=== PATIENT | male | born 1930 | race Caucasian/White ===

== ENCOUNTER 2017-09-23 13:58 | Inpatient (IN) | payer MEDICARE, OTHER ==
[~2017-09-23] VITALS: Ht 170.2 cm; Wt 86.2 kg
[2017-09-23 14:03] VITALS: BP 127/79
[2017-09-23] MEDS ORDERED: PLAVIX 300 MG300 M1 PO (14:09)
[2017-09-23] MEDS ORDERED: LISINOPRIL5 MG PO (14:10)
[2017-09-23] MEDS ORDERED: NORVASC5 MG PO (14:10)
[2017-09-23] MEDS ORDERED: GLYBURIDE 2.52.5 MG PO (14:10)
[2017-09-23] MEDS ORDERED: METFORMIN HCL500 MG PO (14:10)
[2017-09-23] MEDS ORDERED: IMDUR 30 MG TAB30 M1 PO (14:10)
[2017-09-23] MEDS ORDERED: COREG6.25 MG PO (14:10)
[2017-09-23] MEDS ORDERED: FLOMAX0.4 MG PO (14:11)
[2017-09-23] MEDS ORDERED: LIPITOR10 MG PO (14:11)
[2017-09-23] MEDS ORDERED: ASPIR 8181 MG PO (14:12)
[2017-09-23] MEDS ORDERED: PROSCAR 5MG TABL5 MG PO (14:12)
[2017-09-23] MEDS ORDERED: FISH OIL 1,001000 M2 PO (14:12)
[2017-09-23 14:28] LABS: ABSOLUTE BASOPHILS 0.1 thou/uL (0.0-0.2); ABSOLUTE EOSINOPHILS 0.1 thou/uL (0.0-0.7); ABSOLUTE LYMPHOCYTES 2.3 thou/uL (0.8-5.3); ABSOLUTE MONOCYTES 0.8 thou/uL (0.0-1.2); ABSOLUTE NEUTROPHILS 7.9 thou/uL (1.6-8.1); BASOPHILS 0.7 %; EOSINOPHILS 1.2 %; HEMATOCRIT 46.1 % (42.0-52.0); HEMOGLOBIN 15.3 gm/dL (14.0-18.0); LYMPHOCYTES 20.2 %; MCHC 33.2 g/dL (28.0-37.0); MCV 90.2 fL (80.0-100.0); MONOCYTES 7.1 %; MPV 8.2 fl. (7.2-11.1); NUCLEATED RBCS 0 /100WBC; PLATELET COUNT* 314 thou/uL (150-400); POLYS 70.8 %; RBC 5.11 mil/uL (4.50-6.00); RDW-CV 14.9 % (10.5-14.5); WBC 11.1 thou/uL (4.0-11.0)
[2017-09-23 14:33] LABS: ANION GAP 9 mmol/L (7-16); BUN 20 mg/dL (7-18); CALCIUM 9.1 mg/dL (8.5-10.1); CHLORIDE 100 mmol/L (98-107); CO2 24 mmol/L (21-32); CREATININE 1.2 mg/dL (0.6-1.3); GLUCOSE 165 mg/dL (70-99); POTASSIUM 4.3 mmol/L (3.5-5.1); SODIUM 133 mmol/L (136-145)
[2017-09-23 14:39] LABS: INR 1.1; PROTIME 10.6 Seconds (9.20-11.50)
[2017-09-23 14:43] LABS: ALBUMIN 3.6 g/dL (3.4-5.0); ALKALINE PHOSPHATASE 95 U/L (46-116); LIPASE 42 U/L (73-393); MAGNESIUM 1.7 mg/dL (1.8-2.4); NT-PRO BRAIN NAT PEPTIDE 2768 pg/mL (<300); SGOT 16 U/L (15-37); SGPT 18 U/L (30-65); TOTAL BILIRUBIN 0.7 mg/dL (<0.1-1.0); TOTAL PROTEIN 7.6 g/dL (6.4-8.2); TROPONIN-I LEVEL <0.06 ng/mL (<0.06)
[2017-09-23 15:18] LABS: URINE BILIRUBIN NEGATIVE (Negative); URINE BLOOD TRACE (Negative); URINE CLARITY CLEAR; URINE COLOR YELLOW; URINE GLUCOSE-RANDOM NEGATIVE (Negative); URINE KETONES NEGATIVE (Negative); URINE LEUKOCYTES-REFLEX NEGATIVE (Negative); URINE NITRITE-REFLEX NEGATIVE (Negative); URINE PROTEIN NEGATIVE (Negative); URINE SPECIFIC GRAVITY <= 1.005 (1.005-1.030); URINE UROBILINOGEN 0.2 E.U./dl (0.2-1.0)
--- NOTE | 2017-09-23 17:02 | EKG ---
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
--- NOTE | 2017-09-23 17:02 | EKG ---
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 : 1930 Requested By: Sincere Chacon Order Number: [id number] MD: Albaro Samano Measurements Intervals [place] Rate: 74 P: 21 CT: 183 QRS: -43 QRSD: 146 T: 112 QT: 402 QTc: 446 Interpretive Statements Sinus rhythm Ventricular premature complex left axis LBBB Baseline wander in lead(s) II,III,aVF No previous ECG available for comparison Electronically Signed On 09-23-2017 17:02:05 CDT by Albaro Samano [email or web address] <ELECTRONICALLY SIGNED> By: Albaro Samano MD, [facility] 09/23/171701 1407 140 Albaro Samano MD, [facility] /EPI
[2017-09-23 17:53] VITALS: BP 100/56
[2017-09-23 18:05] VITALS: BP 157/79
--- NOTE | 2017-09-23 18:50 | NUR ---
RECEIVED PT FROM ER. PT A/O X'S 4. ADMISSION ASSESSMENT COMPLETE. PT ON 2L NC SATTING 97%. PT DOES NOT WEAR O2 AT HOME. VSS. AFEBRILE.
[2017-09-23 20:00] VITALS: BP 130/59
[2017-09-23 22:00] VITALS: BP 121/59
[2017-09-23 23:48] VITALS: BP 121/55
[2017-09-24] VITALS (14 sets, daily range): BP systolic 106–153; BP diastolic 22–85
[2017-09-24 04:12] LABS: HEMOGLOBIN 14.1 gm/dL (14.0-18.0); MCH 30.2 pg (26.0-34.0); MCHC 33.6 g/dL (28.0-37.0); MCV 89.8 fL (80.0-100.0); MPV 8.1 fl. (7.2-11.1); RBC 4.68 mil/uL (4.50-6.00); RDW-CV 14.3 % (10.5-14.5); WBC 10.3 thou/uL (4.0-11.0)
[2017-09-24 04:26] LABS: CALCIUM 8.9 mg/dL (8.5-10.1); CREATININE 1.1 mg/dL (0.6-1.3); POTASSIUM 4.2 mmol/L (3.5-5.1)
--- NOTE | 2017-09-24 05:46 | NUR ---
PATIENT PROGRESSING TOWARDS GOALS. DENIES PAIN, N/V. PT VS WNL. TACHYPNEIC AT TIMES. PT BECOMES SOB W/ EXERTION. PT VOIDS PER URNAL TOLERATES WELL. REMAINS ON O2 2L. PT Q2H TURN, HELPS WITH TURNING. ORIENT X4. AFEBRILE. NO VOICED CONCERNS AT THIS TIME. WILL CONTINUE TO MONITOR CLOSELY.
--- NOTE | 2017-09-24 14:11 | NUR ---
PATIENT IS REFUSING INSULIN THERAPY.
--- NOTE | 2017-09-24 17:45 | NUR ---
REPORT GIVEN TO 3RD FLOOR NURSE. PATIENT LEFT BY WHEELCHAIR TO ROOM 314 WITH THE ASSISTANCE OF CRTS. ALL BELONGINGS SENT WITH PATIENT. ASSESSMENT IS CHARTED AND VSS AT THIS TIME. NO OTHER COMPLAINTS DURING THE DAY.
--- NOTE | 2017-09-24 17:55 | NUR ---
ASSUMED CARE OF PATIENT AT THIS TIME. PATIENT SETTLED TO ROOM. VITALS TAKEN AND DOCUMENTED. PATIENT DENIES ANY PAIN. PATIENT HAS COMPLAINTS OF BEING COLD, WARM BLANKETS GIVEN. IV ANTIBIOTICS INFUSING. PATIENT DENIES ANY NEEDS AT THIS TIME. CALL LIGHT WITHIN REACH. WILL CONTINUE TO MONITOR.
[2017-09-25 04:09] VITALS: BP 132/59
[2017-09-25 04:24] LABS: HEMATOCRIT 40.4 % (42.0-52.0); HEMOGLOBIN 13.4 gm/dL (14.0-18.0); MCH 30.1 pg (26.0-34.0); MCHC 33.1 g/dL (28.0-37.0); MCV 90.9 fL (80.0-100.0); MPV 8.7 fl. (7.2-11.1); RBC 4.45 mil/uL (4.50-6.00); RDW-CV 14.9 % (10.5-14.5); WBC 11.3 thou/uL (4.0-11.0)
[2017-09-25 04:38] LABS: CALCIUM 8.7 mg/dL (8.5-10.1); CREATININE 1.2 mg/dL (0.6-1.3); MAGNESIUM 1.8 mg/dL (1.8-2.4); POTASSIUM 4.4 mmol/L (3.5-5.1)
--- NOTE | 2017-09-25 06:39 | NUR ---
PATIENT SLEPT MOST OF THE NIGHT. IV ANTIBIOTICS WERE GIVEN ORDERED. PATIENT WAS GIVEN TYLENOL ONCE FOR ABDOMINAL PAIN WITH GOOD RESULTS. PATIENT REMAINS SR TO SBRADY ON THE MONITOR. WILL CONTINUE TO MONITOR.
[2017-09-25 08:20] VITALS: BP 170/65
[2017-09-25 11:30] VITALS: BP 112/57
[2017-09-25 15:29] VITALS: BP 122/54
--- NOTE | 2017-09-25 17:42 | NUR ---
PATIENT UP IN RECLINER FOR DINNER. PATIENT DENIES ANY PAIN. PATIENT DENIES ANY TROUBLE BREATHING. PATIENT IS ON 2L/NC. PATIENT TRIALED ON ROOM AIR AND SATS DROPPED TO 85%, O2 REPLACED. INCENTIVE SPIROMETER GIVEN AND WALKED IN HALLS WITH STANDBY ASSIST. PATIENT HAS GOOD APPETITE. PATIENT DENIES ANY NEEDS AT THIS TIME. CALL LIGHT WITHIN REACH. WILL CONTINUE TO MONITOR.
[2017-09-26] VITALS: BP 134/78
[2017-09-26 04:40] LABS: HEMOGLOBIN 13.4 gm/dL (14.0-18.0)
--- NOTE | 2017-09-26 06:00 | NUR ---
PATIENT SLEPT MOST OF THE NIGHT. IV REMAINS SALINE LOCKED. PATIENT WAS GIVEN PAIN MEDICINE ONCE THIS SHIFT. PATIENT IS POSSIBLY GOING HOME TODAY OR TOMORROW. WILL CONTINUE TO MONITOR.
[2017-09-26 08:00] VITALS: BP 163/63
[2017-09-26] MEDS ORDERED: CIPRO500 MG PO (10:13)
[2017-09-26] MEDS ORDERED: COLACE100 MG PO (10:13)
[2017-09-26] MEDS ORDERED: XARELTO15 MG PO (10:13)
[2017-09-26] MEDS ORDERED: XARELTO20 MG PO (10:13)
[2017-09-26] MEDS ORDERED: FLAGYL500 MG PO (10:13)
[2017-09-26 10:50] VITALS: BP 163/63
--- NOTE | 2017-09-26 12:59 | NUR ---
PATIENT DISCHARGED TO HOME WITH NIECE AT THIS TIME. PATIENT AMUBLATED ON AND SAT 92-93% IV DC'D. ECHO COMPLETED PRIOR TO DC. DR. JON AWARE THAT PATIENT LEFT BEFORE RESULTS WERE READ, NO FURTHER ORDERS. SCRIPTS CALLED INTO [facility] IN [place]. PATIENT VERBALIZES UNDERSTANDING OF PAPERWORK AND SCRIPTS, ALSO WENT OVER MEDICATIONS WITH PATIENTS NIECE. PATIENT TAKEN OUT VIA WHEELCHAIR WITH ALL BELONGINGS.
--- NOTE | 2017-09-26 14:56 | 2DMMODE ---
[place] [address] 2 D/M-MODE ECHOCARDIOGRAM Name: THANG KEMP Room: [address]#: [id number] Admission: 09/23/17 Attend Phys: Kvng Guerra, Discharge: 09/26/17 Date of : 30 Date of Service: 09/26/17 1456 Report #: [id number] THIS REPORT FOR: //name// APPROVED REPORT Study performed: 09/26/2017 12:14:47 EXAM: Comprehensive 2D, Doppler, and color-flow Echocardiogram Patient Location: In-Patient Room #: [facility] Status: routine BSA: 1.96 HR: 69 bpm BP: 134/78 mmHg Other Information Study Quality: Fair Technically limited study due to uncooperative patient. Indications CAD 2D Dimensions IVSd: 10.42 (7-11mm) LVOT Diam: 20.79 (18-24mm) LVDd: 48.63 mm PWd: 10.01 (7-11mm) Ascending Ao: 29.36 (22-36mm) LVDs: 28.23 (25-40mm) Aortic Root: 24.31 mm Volumes Left Atrial Volume (Systole) LA ESV Index: 16.00 mL/m2 Aortic Valve AoV Peak Dylon.: 1.27 m/s AO Peak Gr.: 6.46 mmHg LVOT Max P.31 mmHg AO Mean Gr.: 3.68 mmHg LVOT Mean P.15 mmHg LVOT Max V: 0.76 m/s AO V2 VTI: 20.81 cm LVOT Mean V: 0.49 m/s SAMMY (VTI): 2.24 cm2 LVOT V1 VTI: 13.73 cm Mitral Valve E/A Ratio: 0.43 MV Decel. Time: 281.78 [place] [address] 2 D/M-MODE ECHOCARDIOGRAM Name: THANG KEMP Room: [address]#: [id number] Admission: 09/23/17 Attend Phys: Kvng Guerra, Discharge: 09/26/17 Date of : 30 Date of Service: 09/26/17 1456 Report #: [id number] MV E Max Dylon.: 0.42 m/s MV PHT: 81.72 ms MVA (PHT): 2.69 cm2 TDI E/Lateral E': 5.25 E/Medial E': 10.50 Medial E' Dylon.: 0.04 m/s Lateral E' Dylon.: 0.08 m/s Pulmonary Valve PV Peak Dylon.: 0.80 m/s PV Peak Gr.: 2.55 mmHg Tricuspid Valve TR Peak Gr.: 38.45 mmHg RVSP: 43.45 mmHg Left Ventricle The left ventricle is normal size. There is normal LV segmental wall motion. There is normal left ventricular wall thickness. Left ventricular systolic function is normal. The left ventricular ejection fraction is within the normal range. LVEF is 50-55%. Grade I - abnormal relaxation pattern. Right Ventricle The right ventricle is normal size. The right ventricular systolic function is normal. Atria The left atrium size is normal. The right atrium size is normal. Aortic Valve The Aortic valve is sclerotic. No aortic regurgitation is present. There is no aortic valvular stenosis. Mitral Valve The mitral valve is normal in structure. Mild mitral regurgitation. No evidence of mitral valve stenosis. Tricuspid Valve The tricuspid valve is normal in structure. Mild to moderate tricuspid regurgitation. The RVSP is 50__ mmHg. Pulmonic Valve The pulmonary valve is normal in structure. There is no pulmonic [place] [address] 2 D/M-MODE ECHOCARDIOGRAM Name: THANG KEMP Room: [address]#: [id number] Admission: 09/23/17 Attend Phys: Kvng Guerra, Discharge: 09/26/17 Date of : 30 Date of Service: 09/26/17 1456 Report #: [id number] Great Vessels The aortic root is normal in size. IVC is normal in size and collapses with >50% inspiration Pericardium There is no pericardial effusion. <Conclusion> LVEF is 50-55%. The Aortic valve is sclerotic. Mild to moderate tricuspid regurgitation. The RVSP is 50__ mmHg. <ELECTRONICALLY SIGNED> By: Albaro Samano MD, [facility] 09/26/17 1456 1456 1456 Albaro Samano MD, FACC /INF
== END 2017-09-26 12:30 | disposition home or self-care (01) | DRG 175 ==
LOC: M.ERS 13:58 → M.3W 16:37 → M.ICU 16:37 → M.TBA-ER 16:37 → M.ICU 18:22 → M.3W 09-24 18:12
PROVIDERS: Emergency Medicine Emergency Medical Services; ADMIT Internal Medicine
DX: I26.92 Saddle embolus of pulmonary artery without acute cor pulmonale (principal); J96.01 Acute respiratory failure with hypoxia; I82.411 Acute embolism and thrombosis of right femoral vein; K57.92 Diverticulitis of intestine, part unspecified, without perforation or abscess without bleeding; C67.9 Malignant neoplasm of bladder, unspecified; I10 Essential (primary) hypertension; E78.5 Hyperlipidemia, unspecified; E11.9 Type 2 diabetes mellitus without complications; Z79.82 Long term (current) use of aspirin; Z79.899 Other long term (current) drug therapy; Z79.84 Long term (current) use of oral hypoglycemic drugs